=== PATIENT | female | born 1960 | race Caucasian/White ===

== ENCOUNTER 2019-10-28 11:40 | Emergency (ER) | payer SELFPAY ==
[~2019-10-28] VITALS: Ht 165.1 cm; Wt 90.7 kg
[2019-10-28 11:48] VITALS: Ht 165.1 cm; Wt 90.7 kg
[2019-10-28 13:45] VITALS: BP 140/63
== END 2019-10-28 13:46 | disposition home or self-care (01) ==
LOC: ED 11:40
DX: S67.192A Crushing injury of right middle finger, initial encounter (principal); I11.0 Hypertensive heart disease with heart failure; I50.89 Other heart failure; E11.9 Type 2 diabetes mellitus without complications; X58.XXXA Exposure to other specified factors, initial encounter; Y93.89 Activity, other specified; Y92.89 Other specified places as the place of occurrence of the external cause; Y99.8 Other external cause status
CPT/HCPCS: Q0092